=== PATIENT | female | born 1960 | race Caucasian/White ===

== ENCOUNTER 2021-06-21 15:19 | Outpatient (CLI) | payer BC | END 2021-06-21 15:20 | disposition home or self-care (01) | LOC: CSHULT 15:19 | PROVIDERS: ATTEND Urology | DX: N20.0 Calculus of kidney (principal); N20.1 Calculus of ureter | CPT/HCPCS: 76770 ==

== ENCOUNTER 2023-06-10 14:37 | Observation (INO) | payer BC ==
[2023-06-10] MEDS ORDERED: Acetaminophen 325 MG TAB PO PRN (16:14)
[2023-06-10] MEDS ORDERED: Ondansetron ODT 4 MG TAB PO PRN (16:14)
[2023-06-10 16:28] VITALS: BMI 30.5
[2023-06-10] MEDS ORDERED: Aspirin Chewable 81 MG TAB PO SCH (16:45)
[2023-06-10 17:24] LABS: Troponin I Less than 0.010 ng/mL (< 0.028)
[2023-06-10 19:57] LABS: Troponin I Less than 0.010 ng/mL (< 0.028)
[2023-06-10] MEDS ORDERED: Atorvastatin Calcium 10 MG TAB PO SCH (21:00)
[2023-06-10] MEDS: Famotidine 20 MG TAB PO SCH (21:51)
[2023-06-11 05:28] LABS: Cardiac Risk 4.5 (Less than 4.5)
[2023-06-11 08:41] VITALS: BP 134/80; TEMP 98.1
[2023-06-11] MEDS ORDERED: Aspirin Chewable 81 MG TAB PO SCH (09:00)
[2023-06-11] MEDS: Famotidine 20 MG TAB PO SCH (09:36)
== END 2023-06-11 12:12 | disposition home or self-care (01) ==
LOC: CSHTELE 15:59
PROVIDERS: ADMIT Internal Medicine; ATTEND Internal Medicine
DX: R07.2 Precordial pain (principal); I25.10 Atherosclerotic heart disease of native coronary artery without angina pectoris; I10 Essential (primary) hypertension; E78.5 Hyperlipidemia, unspecified; Z90.710 Acquired absence of both cervix and uterus; Z95.5 Presence of coronary angioplasty implant and graft; Z88.0 Allergy status to penicillin; Z79.82 Long term (current) use of aspirin; Z79.899 Other long term (current) drug therapy
CPT/HCPCS: 36415; 71045; 80053; 80061; 83690; 84484; 85025; 93005; 94760; G0378